=== PATIENT | male | born 2000 | race Caucasian/White ===

== ENCOUNTER 2023-08-28 11:32 | Emergency (ER) | payer OTHER, BC, SELFPAY ==
[2023-08-28 11:33] VITALS: BP 151/111; PULSE 81; RESP 20; TEMP 36.8; O2SAT 97; BMI 42.5
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
[2023-08-28] MEDS: HYDROmorphone 1 MG/ML Syringe IM (12:37)
[2023-08-28 13:17] VITALS: BP 178/72; PULSE 80; RESP 18; TEMP 36.6; O2SAT 99
== END 2023-08-28 13:19 | disposition home or self-care (01) ==
LOC: ED 12:39
PROVIDERS: Emergency Provider Emergency Medicine; Visit Provider Emergency Medicine
DX: T23.001A Burn of unspecified degree of right hand, unspecified site, initial encounter (principal); T23.002A Burn of unspecified degree of left hand, unspecified site, initial encounter; Z79.899 Other long term (current) drug therapy; X58.XXXA Exposure to other specified factors, initial encounter
CPT/HCPCS: 96372; 99282

== ENCOUNTER 2023-10-29 00:53 | Emergency (ER) | payer BC, SELFPAY ==
[2023-10-29 00:54] VITALS: BP 131/89; PULSE 81; RESP 19; TEMP 36.7; O2SAT 98; BMI 43.2
[2023-10-29 00:59] VITALS: BP 133/91; PULSE 88; RESP 19; TEMP -13.3; TEMP 8.1; O2SAT 98
--- NOTE | 2023-10-29 01:18 | EX.ED.VIS.UR ---
HPI HPI - URI History of Present Illness Chief Complaint: Shortness of Breath Informant: patient Onset/Context/Timing Onset: Today and Days Context: Gradual Onset Current Severity: Mild Maximum Severity: Mild Associated Symptoms Associated Symptoms: Positive for Nasal Congestion, Headache, Myalgias, Shortness of Breath and Productive Cough Narrative Narrative: 23-year-old male who has a history of rheumatoid arthritis and ankylosing spondylitis. Since Tuesday has had URI symptoms. Tuesday he tested positive for COVID. He has had yellow productive sputum. Had some mild wheezing and today felt short of breath. Denies fever or vomiting. No hemoptysis. No leg pain or swelling. Prior similar symptoms: Yes Recent Illness/Hospitalization: No ROS ROS ED ROS Narrative Cough. Nasal congestion. Body aches. Short of breath. Review of Systems ROS Unobtainable: Denies due to encephalopathy Constitutional Constitutional ED: Denies chills or fever(s) ENT ENT ED: Denies ear pain Cardiovascular Cardiovascular: Denies chest pain Respiratory/Chest Respiratory/Chest: Reports cough and dyspnea Gastrointestinal Gastrointestinal: Denies abdominal pain, constipation, diarrhea, melena or nausea Genitourinary Genitourinary ED: Denies dysuria or hematuria Musculoskeletal Musculoskeletal: Denies arthralgias Integumentary Denies abscess Neurologic Neurologic: Reports headache(s) Psychiatric Psychiatric: Denies anxiety Endocrine Endocrinology: Denies cold intolerance Hematologic/Lymphatic Hematologic/Lymphatic: Denies easy bleeding Allergic/Immunologic Allergic/Immunologic ED: Denies mouth swelling or tongue swelling [facility] Medical History Concussion Toxic shock syndrome Depression Home Medications ?Medication ?Instructions ?Recorded ?Last Taken ?Type buspirone 10 mg tablet 10 mg PO DAILY 08/28/23 Unknown History duloxetine 30 mg capsule,delayed 90 mg PO DAILY 08/28/23 Unknown History release meloxicam 15 mg tablet 15 mg PO DAILY 08/28/23 Unknown History testosterone cypionate 200 mg/mL 200 mg IM Q7D 08/28/23 Unknown History intramuscular oil lamotrigine 100 mg tablet 100 mg PO DAILY 10/29/23 Unknown History (Lamictal) Allergy/AdvReac Type Severity Reaction Status Date / Time NSAIDS (Non-Steroidal AdvReac PT UNSURE Verified 10/29/23 00:54 Anti-Inflamma OF REACTION Surgical History Hx of bilateral mastectomy Social History Smoking Status: Never smoker EXAM Physical Exam Narrative Exam Narrative: Well-appearing 23-year-old male. Vital signs stable afebrile. Pulse ox 98% on room air no hypoxia. He is in no distress. H EENT exam pupils round react light. Mytrex membranes. Posterior pharynx normal. Neck nontender. No lymphadenopathy. No meningismus. Lungs clear to auscultation bilaterally. No rales, rhonchi or wheezing. Equal and symmetric. Heart regular rhythm rate about 80 no murmur. Chest wall ribs nontender. Abdomen soft nontender. Moving all 4 extremities. Calves are nontender without edema or cords. Neurologically is awake and alert no focal motor deficits. Answering questions following commands. Benign exam. Const Vital Signs: 10/29/23 00:54 10/29/23 00:54 10/29/23 00:59 Temperature 98.1 F 8.1 F L Temperature Source Oral Oral Pulse Rate 81 88 Respiratory Rate 19 H 19 H Respiratory Effort Normal Non-Labored Respiratory Depth Normal Respiratory Pattern Normal Blood Pressure 131/89 H 133/91 H Blood Pressure Mean 103 105 Pulse Ox 98 98 Oxygen Delivery Method Room Air Room Air Positive well nourished and well developed; Negative for cachectic or contractures General Appearance ED: well developed; Negative for cachectic, contractures, cyanotic, diaphoretic or pallor Nutritional Appearance: Negative for cachectic HEENT Reports moist mucous membranes normocephalic and atraumatic Face and Sinus: Negative for sinus tenderness Teeth and Gingiva: Negative for caries Throat: posterior oropharynx normal; Negative for tonsils abnormal or posterior oropharynx abnormal Eyes PERRL and EOMs intact bilaterally General Eye ED: Negative for pale conjunctiva, scleral icterus or other Neck no lymphadenopathy, supple, no meningeal signs and no JVD General: Negative for anterior neck swelling, lymphadenopathy or other Resp normal respiratory effort and clear to auscultation bilaterally Effort and Inspection: Negative for retractions Auscultation: Negative for rales, rhonchi, wheezes or diminished lung sounds Cardio S1 normal heart sound, S2 normal heart sound and no murmurs Rate: regular rate Rhythm: regular rhythm GI non-tender, non-distended and no masses Inspection: Negative for abdominal distention Palpation: soft; Negative for tender or guarding Back/Spine no CVA tenderness and normal ROM General Back: Negative for CVA tenderness Cervical Spine: Negative for cervical spine tenderness Thoracic Spine / Upper Back: Negative for thoracic spinal tenderness Lumbar Spine / Lower Back: Negative for lumbar spinal tenderness Sacrum: Negative for tenderness Extremity normal to inspection and full ROM General Extremety ED: Negative for cyanosis, tenderness or other findings General Extremity: Negative for cyanosis or other findings Neuro oriented x3 and CN's II-XII intact bilaterally Sensorium / Orientation: alert, oriented to person, oriented to place and oriented to time; Negative for orientation impaired, lethargic or stuporous Motor Exam: strength 5/5 throughout Psych mental status grossly normal Appearance: Negative for other Attitude: No agitated Mood & Affect: Negative for depressed, anxious or tearful Skin General Skin Exam: Negative for jaundice or pallor Lesions: no lesions Rashes: no rashes Trauma: Negative for abrasion, laceration or puncture MDM MDM MDM Narrative Medical decision making narrative: 23-year-old male vital signs stable afebrile. Pulse ox 98%. Tested positive for COVID on Tuesday. Exam benign. Chest x-ray being obtained to rule out a secondary pneumonia. Currently is not wheezing and only needs any breathing treatments. He is in no respiratory distress. History & Record Review Discussion w/independent historian: Patient and Family Radiography Chest X-Ray - ED: 2 View, Read by ED Physician, Normal, Heart, Lungs, Mediastinum, Bony Structures and No Acute Disease Diagnostic Testing: Chest x-ray, 2 views, AP and lateral, interpreted by myself shows no acute abnormality. Normal cardiac silhouette. Normal mediastinum. Normal lung pérez. No infiltrates. No pneumonia. Discharge Plan Triage Chief Complaint: Shortness of Breath ED Provider: David Obrien Dx/Rx/DC Orders Clinical Impression: COVID Instructions: Human Coronaviruses Prescriptions: No Action lamotrigine [Lamictal] 100 mg tablet 100 mg PO DAILY meloxicam 15 mg tablet 15 mg PO DAILY buspirone 10 mg tablet 10 mg PO DAILY testosterone cypionate 200 mg/mL oil 200 mg IM Q7D duloxetine 30 mg capsule,delayed release(DR/EC) 90 mg PO DAILY Primary Care Provider: Care Physician,No Primary Referrals: Jerad Brooke MD [Med Staff - [employer]] - 1 Week if not improving Care Physician,No Primary [Primary Care Provider] - Activity Restrictions/Additional Instructions: Plenty of fluids and rest. Tylenol and/or Motrin for any fever. Chest x-ray look good tonight. No signs of secondary pneumonia. This should progressively improve over the next 3 to 7 days. Follow-up if not improving or return if worse. Print Language: Greenlandic Disposition Disposition: Home, Self Care
--- NOTE | 2023-10-29 01:22 | RAD_ITS ---
EXAM: XR CHEST, 2 VIEWS CLINICAL INDICATION: CHEST PAIN, COUGH TECHNIQUE: Frontal and lateral views of the chest. COMPARISON: No relevant prior studies available. FINDINGS: LUNGS AND PLEURAL SPACES: Unremarkable. No consolidation or edema. No pneumothorax. No effusion. HEART: Unremarkable. Cardiac silhouette not enlarged. MEDIASTINUM: Central airways and mediastinal contour are unremarkable. BONES/JOINTS: Unremarkable. No acute fracture. SOFT TISSUES: Unremarkable. RAD/Chest PA and Lateral IMPRESSION: No radiographic evidence of acute cardiopulmonary disease. Electronically Signed: Stephanie George MD at 2:30 EDT ,
[2023-10-29 02:00] VITALS: BP 126/91; PULSE 81; RESP 18; TEMP 36; O2SAT 99
== END 2023-10-29 02:02 | disposition home or self-care (01) ==
PROVIDERS: Emergency Provider Emergency Medicine; Visit Provider Emergency Medicine
DX: U07.1 COVID-19 (principal); F32.A Depression, unspecified
CPT/HCPCS: 71046; 99282